=== PATIENT | female | born 1985 | race Caucasian/White ===

== ENCOUNTER → 2018-03-02 | Outpatient (CLI) | payer OTHER ==
[~2018-03-02] MED LIST: NORCO 325 MG-51 TAB PO; ZOFRAN ODT4 MG PO
== END ==
LOC: COL.RAD 11:57
DX: R10.11 Right upper quadrant pain (principal); R74.0 Nonspecific elevation of levels of transaminase and lactic acid dehydrogenase [LDH]; Z90.49 Acquired absence of other specified parts of digestive tract